=== PATIENT | female | born 1975 | race Caucasian/White ===

== ENCOUNTER → 2018-05-25 | Outpatient (CLI) | payer OTHER | LOC: BMCIMAGING 08:22 | PROVIDERS: ATTEND Family Medicine | DX: Z12.31 Encounter for screening mammogram for malignant neoplasm of breast (principal) ==

== ENCOUNTER 2019-02-08 09:34 | Day surgery (SDC) | payer OTHER ==
[2019-02-08] MEDS ORDERED: LR 1,000 ML IV ONE (15:27)
[2019-02-08] MEDS ORDERED: LIDOCAINE 1% 2 ML INJ ID PRN (15:27)
--- NOTE | 2019-02-08 15:56 | POSTANESTH ---
Post Anesthetic Evaluation Cardiovascular Status: Normal, Stable Respiratory Status: Normal, Stable Level of Consciousness/Mental Status: Can Participate in Eval, Alert and Oriented Pain Control: Adequate, Prn Tx Ordered Nausea/Vomiting Control: Adequate, Prn Tx Ordered (Mild nausea. Eating applesauce without any difficulty.) Complications Possibly Related to Anesthesia: None Noted
[2019-02-08] MEDS ORDERED: BUPIVACAINE/EPI 0.5% 30 ML SDV ONE (16:07)
[2019-02-08] MEDS ORDERED: BACITRACIN 50,000 UNITS/10 ML SYR IRR ONE (16:08)
[2019-02-08] MEDS ORDERED: BUPIVACAINE 0.5% 30 ML SDV ONE (16:08)
--- NOTE | 2019-02-08 16:12 | PDANEPAE ---
ANE History of Present Illness 44 yo female s/p dog bite for I&D of R hand. ANE Past Medical History - Cardiovascular History Hx Hypertension: No Hx Arrhythmias: Yes Hx Chest Pain: No Hx Coronary Artery / Peripheral Vascular Disease: No Hx CHF / Valvular Disease: No Hx Palpitations: Yes Cardiovascular History Comment: Family history of heart problems - Pulmonary History Hx COPD: No Hx Asthma/Reactive Airway Disease: No Hx Recent Upper Respiratory Infection: No Hx Oxygen in Use at Home: No Hx Sleep Apnea: No - Neurologic History Hx Cerebrovascular Accident: No Hx Seizures: No Hx Dementia: No - Endocrine History Hx Diabetes: No Hypothyroid: No Hyperthyroid: No Obesity: no - Renal History Hx Renal Disorders: No - Liver History Hx Hepatic Disorders: No - Neurological & Psychiatric Hx Hx Neurological and Psychiatric Disorders: No - Cancer History Hx Cancer: No - Congenital Disorder History Hx Congenital Disorders: No - GI History Hx Gastrointestinal Disorders: No - Other Health History Other Health History: acne - Surgical History Prior Surgeries: Hysterectomy 2003 ANE Review of Systems Review of Systems: - Exercise capacity METS (RN): 5 METS - Systems Constitutional: Reports: no symptoms Muscolosketal: Reports: other (R hand pain at dog bite site) ANE Patient History - Allergies Allergies/Adverse Reactions: No Allergies [NKDA] Allergy (Verified 02/08/19 15:37) - Home Medications Home Medications: ETHEL-D 12 HOUR TABLET 02/08/19 [Last Taken 1 Day Ago ~02/07/19] Aldactone 02/08/19 [Last Taken 1 Day Ago ~02/07/19] Vitamin D2 02/08/19 [Last Taken 1 Day Ago ~02/07/19] Women's Multivitamin Tablet 02/08/19 [Last Taken 1 Day Ago ~02/07/19] - NPO status NPO Since - Liquids (Date): 02/08/19 NPO Since - Liquids (Time): 08:00 NPO Since - Solids (Date): 02/08/19 NPO Since - Solids (Time): 11:00 - Anes Hx Anes Hx: no prior problems - Smoking Hx Smoking Status: Former smoker Marijuana use: No - Alcohol Use Alcohol Use: Occasionally (EtOH on weekends) - Family Anes Hx Family Anes Hx: neg - N/A Family Hx Anesthesia Complications: NA ANE Labs/Vital Signs - Vital Signs Vital Signs: reviewed preoperatively; see RN documention for details Height: 154.94 cm Weight: 60.328 kg ANE Physical Exam - Airway Neck exam: FROM Mallampati Score: Class 1 Mouth exam: normal dental/mouth exam - Pulmonary Pulmonary: clear to auscultation - Cardiovascular Cardiovascular: regular rate and rhythym - ASA Status ASA Status: I ANE Anesthesia Plan Anesthesia Plan: GA w LMA ([facility] LMA)
[2019-02-08] MEDS ORDERED: LIDOCAINE 2% 5 ML SDV ONE (16:49)
[2019-02-08] MEDS ORDERED: KETOROLAC 30 MG/1 ML SDV ONE (16:49)
[2019-02-08] MEDS ORDERED: DEXAMETHASONE 4 MG/ML VIAL ONE (16:49)
[2019-02-08] MEDS ORDERED: PROPOFOL/EMULSION 500 MG/50 ML BOTTLE IV ONE (16:49)
[2019-02-08] MEDS ORDERED: fentaNYL 100 MCG/2 ML INJ ONE (16:49)
--- NOTE | 2019-02-08 16:56 | PDHPUP ---
History & Physical Update H&P update statement: This history and physical update is based on an assessment of the patient which was completed after admission or registration (within 24 hours), but prior to the surgery/procedure. H&P update: H&P reviewed & patient examined, no change in patient's condition since H&P completed
[2019-02-08] MEDS ORDERED: AMPICILLIN/SULBACTAM 3 GM in NS 100 ML IV SCH (18:00)
[2019-02-08] MEDS ORDERED: PROMETHAZINE HCL 25 MG/ML INJ IVP PRN (18:05)
[2019-02-08] MEDS ORDERED: oxyCODONE IR 5 MG TAB PO PRN (18:05)
[2019-02-08] MEDS ORDERED: NALOXONE HCL 0.4 MG/ML INJ IVP PRN (18:05)
[2019-02-08] MEDS ORDERED: LR 500 ML IV PRN (18:05)
[2019-02-08] MEDS ORDERED: ACETAMINOPHEN 500 MG TAB PO PRN (18:05)
[2019-02-08] MEDS ORDERED: ALBUTEROL 3 ML DEYVIAL IH PRN (18:05)
[2019-02-08] MEDS ORDERED: fentaNYL 100 MCG/2 ML INJ IVP PRN (18:05)
[2019-02-08] MEDS ORDERED: ONDANSETRON 4 MG/2 ML VIAL ONE (18:06)
[2019-02-08] MEDS ORDERED: oxyCODONE IR 5 MG TAB ONE (18:51)
[2019-02-08] MEDS ORDERED: ACETAMINOPHEN 500 MG TAB ONE (18:51)
[2019-02-08 19:23] VITALS: BP 114/76
--- NOTE | 2019-02-11 06:20 | GOP ---
[f rep st] OPERATIVE REPORT DATE OF OPERATION: 02/08/2019 SURGEON: Francis Moses MD ANESTHESIA: General. PREOPERATIVE DIAGNOSIS: 1. Right hand dog bite with possible open fracture to the 3rd metacarpal. 2. Right hand dog bite multiple wounds to the ring finger, middle finger, small finger, and dorsal hand totaling 1.5 cm. POSTOPERATIVE DIAGNOSIS: 1. Right hand dog bite with possible open fracture to the 3rd metacarpal. 2. Right hand dog bite multiple wounds to the ring finger, middle finger, small finger, and dorsal hand totaling 1.5 cm. PROCEDURE PERFORMED: 1. Right hand irrigation and debridement of dog bite wound and site of possible open fracture to the 3rd metacarpal with irrigation, debridement of skin, subcutaneous tissue, tendon, and bone. 2. Closure of multiple dog bite wounds totaling 1.5 cm. FINDINGS: ESTIMATED BLOOD LOSS: <5cc INDICATIONS: The patient is a 44-year-old female who was breaking up a fight between her dogs on the day of the operation when she was bitten in her hand. She was seen at the urgent care at [facility]. I was consulted. An x-ray was done which showed a possible cortical irregularity at the 3rd metacarpal. This corresponded to her dog bite wounds. This was very concerning for an open fracture of the 3rd metacarpal caused by a dog bite as well as concerning for traumatic arthrotomy of the 3rd metacarpophalangeal joint. This is very concerning for the development of septic arthritis in the hand of the animal bite to that joint. I felt that an urgent I and D was indicated for this injury to prevent onset of infection. I discussed risks and benefits with her. Risks include pain, bleeding, infection, damage to surrounding structures, stiffness, weakness, infection, need for further operations, wound healing complications. She understood these risks and wished to proceed. DESCRIPTION OF PROCEDURE: The patient was seen in preoperative holding area. She has given the opportunity to ask any questions. All questions were answered. Consent was signed. Surgical site was marked. She was transferred to operative suite. Care was taken to pad all bony prominences on the gurney. Time-out was called, including surgical and anesthesia teams, confirming the surgical site and procedure performed. The right upper extremity was prepped and draped in usual sterile fashion. Notably, the patient received 3 g of Ancef at my recommendation while she was at the urgent care. I ordered another 3 g about six hours later to be done during the surgical procedure. Right upper extremity was exsanguinated with an Esmarch, and tourniquet was inflated to 250 mmHg. I then began to explore the incision. She had about a 0.5 cm incision directly over the 1st MP joint. This was extended and opened up. I explored it. It did not appear to have any damage to the extensor tendon, then she had another 1 cm split in the 3rd web space. This was the site of the dog bite. This wound was concerning for possible traumatic arthrotomy. This was extended as well. I did not see any violation to the metacarpophalangeal joint , which was fortunate. There were wounds over the volar aspect of the RLF and RRF both equaled about 0.5 cm total. Thus, the total incision laceration size was about 1.5 cm, which were then closed after the irrigation and debridement. All the wounds were irrigated copiously with sterile saline. The one in the 3rd web space that was over the 3rd metacarpal was thoroughly explored. I debrided any contaminated skin and subcutaneous tissue with scissors. The bone was cleaned with a [place] elevator. I then irrigated that copiously with sterile saline. All incisions were then closed with 4-0 nylon and 3-0 nylon. A sterile dressing was applied. Patient tolerated procedure well, was taken to PACU in stable condition. POSTOPERATIVE CONDITION: Stable. POSTOPERATIVE PLAN: I instructed the patient to begin soaks in two days. She is to see me next week for wound check. I have her starting Augmentin /[id number]/MODL MTDD
== END 2019-02-08 19:24 | disposition home or self-care (01) ==
LOC: BMCIMAGING 09:34 → FSGY 09:34 → EDSTATUS 10:35 → FSGY 19:24
PROVIDERS: ATTEND Orthopaedic Surgery Hand Surgery
PROC: 0JQJ0ZZ Repair Right Hand Subcutaneous Tissue and Fascia, Open Approach (ICD-10-PCS; principal; 2019-02-08 16:45)
DX: S61.451A Open bite of right hand, initial encounter (principal); W54.0XXA Bitten by dog, initial encounter; Y93.K9 Activity, other involving animal care
CPT/HCPCS: J0295; J1100; J1885; J2405; J2704; J3010